=== PATIENT | female | born 1975 | race Caucasian/White ===

== ENCOUNTER 2017-08-06 20:47 | Emergency (ER) | payer OTHER ==
[~2017-08-06] VITALS: Ht 182.8 cm; Wt 124.7 kg
[~2017-08-06 20:47] MED LIST: CLONAZEPAM0.5 MG PO; DEPO PROVER150 MG/M1 IM; FLUTICASON0.05 MG/A1 NAS; IMITREX100 MG PO; MOTRIN800 MG PO; PHENDIMETRAZIN105 M1 PO; TOPAMAX2 MG PO; TRAMADOL50 MG PO
[2017-08-06] MEDS ORDERED: CLEOCIN150 MG PO (20:55)
[2017-08-06] MEDS ORDERED: REGLAN10 M1 PO (22:43)
== END 2017-08-06 22:54 | disposition home or self-care (01) ==
LOC: ED 20:47
DX: K12.1 Other forms of stomatitis (principal); T36.8X5A Adverse effect of other systemic antibiotics, initial encounter; Y92.531 Health care provider office as the place of occurrence of the external cause; G43.909 Migraine, unspecified, not intractable, without status migrainosus; F17.200 Nicotine dependence, unspecified, uncomplicated; Z88.0 Allergy status to penicillin; Z79.899 Other long term (current) drug therapy

== ENCOUNTER 2018-04-05 18:32 | Emergency (ER) | payer OTHER ==
[~2018-04-05] VITALS: Ht 177.8 cm; Wt 136.1 kg
[~2018-04-05 18:32] MED LIST changes: +CLEOCIN150 MG PO; +REGLAN10 M1 PO
[2018-04-05] MEDS ORDERED: CYMBALTA60 MG PO (18:36)
[2018-04-05] MEDS ORDERED: NAPROSYN500 MG PO (20:09)
== END 2018-04-05 20:12 | disposition home or self-care (01) ==
LOC: ED 18:32
DX: M79.672 Pain in left foot (principal); G43.909 Migraine, unspecified, not intractable, without status migrainosus; Z88.0 Allergy status to penicillin; Z79.899 Other long term (current) drug therapy

== ENCOUNTER 2019-02-16 16:38 | Emergency (ER) | payer OTHER ==
[~2019-02-16] VITALS: Ht 177.8 cm; Wt 124.7 kg
[~2019-02-16 16:38] MED LIST changes: +CYMBALTA60 MG PO; +NAPROSYN500 MG PO
== END 2019-02-16 19:38 | disposition left against medical advice (07) ==
LOC: ED 16:38
DX: G43.909 Migraine, unspecified, not intractable, without status migrainosus (principal); Z88.0 Allergy status to penicillin; Z79.899 Other long term (current) drug therapy

== ENCOUNTER 2019-02-18 21:38 | Emergency (ER) | payer OTHER ==
[~2019-02-18] VITALS: Wt 113.4 kg
== END 2019-02-18 23:35 | disposition home or self-care (01) ==
LOC: ED 21:38
DX: G43.909 Migraine, unspecified, not intractable, without status migrainosus (principal); Z88.0 Allergy status to penicillin; Z79.899 Other long term (current) drug therapy; Z87.891 Personal history of nicotine dependence